=== PATIENT | female | born 1955 | race Caucasian/White ===

== ENCOUNTER 2018-07-28 12:39 | Observation (INO) | payer MEDICARE, OTHER, SELFPAY ==
[2018-07-28] VITALS (10 sets, daily range): BP systolic 133–166; BP diastolic 67–86; PULSE 46–63; RESP 14–18; TEMP 36.1–36.9; O2SAT 94–99; BMI 30.4; BMI 30.5
--- NOTE | 2018-07-28 13:15 | EKG12_ITS ---
Test Reason : PALPITATIONS Blood Pressure : / mmHG Vent. Rate : 053 BPM Atrial Rate : 053 BPM P-R Int : 112 ms QRS Dur : 086 ms QT Int : 484 ms P-R-T Axes : 000 001 -08 degrees QTc Int : 454 ms Sinus bradycardia vs ectopic atrial bradycardia Nonspecific ST abnormality Abnormal ECG Confirmed by FAITH MENDOZA, NORMA ([id number]), sound editor VENUS BRUMFIELD ([id number]) on 07/31/2018 9:04:58 AM Referred By: Adolfo Solitario Confirmed By:NORMA CUEVAS MD
--- NOTE | 2018-07-28 13:15 | ED.VIS.GEN ---
History of Present Illness Chief Complaint: Syncope Detail of Chief Complaint: near-syncope Informant: Patient, Significant Other Onset: Yesterday Context: Sudden Onset - w/ heavy exertion yest, at rest today while sitting in [employer] Timing: Intermittent, Lasts - 20-30 min Quality: lightheaded, near-syncopal Current Severity: - - gone Maximum Severity: Severe Worsened by: exertion yest Relieved by: rest yest Associated Symptoms: sob. nausea. all sx gone right now. Narrative: Patient is never had symptoms like this before. She takes HCTZ for blood pressure but no AV blocking medications. No history of heart problems. Had a normal stress test around 2 years ago. States she donated blood about a week ago and they told her to drink plenty of fluids which she has been doing. No new medications. She denies having any chest, back, jaw/neck/arm discomfort at all with any of this. Her nausea is associated with feeling lightheaded and like she is going to pass out, but it resolves when the other symptoms resolved. She feels short of breath and feels like her heart is pounding or beating hard, but not necessarily irregularly and has had no racing. - Past Medical History (1) Hypertension Status: Chronic Past Medical History - Allergies and Home Meds Allergies/Adverse Reactions: Allergies No Known Allergies Allergy (Verified 07/28/18 13:40) Primary Care Physician: NOT,DEFINED [NON-STAFF] - Lives: Spouse/ Significant Other Smoking Status: Former smoker Drugs: None Review of Systems General: Reports: Malaise. Denies: Chills, Fever, Sweats Eyes: Denies: Visual changes - bilaterally, Diplopia ENT: Denies: Rhinorrhea, Sore throat Cardiovascular: Denies: Chest pain, Palpitations Respiratory: Reports: Dyspnea. Denies: Cough, Dyspnea on exertion Gastrointestinal: Reports: Nausea. Denies: Abdominal pain, Vomiting, Diarrhea, Melena, Hematochezia Genitourinary: Denies: Dysuria, Hematuria, Frequency Musculoskeletal: Denies: Back pain, Swelling, Extremity Pain Skin: Denies: Rash, Wounds Neurological: Denies: Headache, Weakness, Numbness Physical Exam Vital Signs/Narrative: Vital Signs Temp Pulse Resp BP Pulse Ox 07/28/18 12:39 97 F L 50 L 16 166/82 H 99 Inital Vital Signs reviewed: Yes General: Well nourished, Well developed, No Acute Distress Head: Normocephalic, Atraumatic Eyes: Perrl, EOMI ENT: Moist mucous membranes, No rhinorrhea Neck: Supple, Nontender, No lymphadenopathy, No JVD Cardiovascular: Regular rate, Regular rhythm, No murmurs, Normal S1, Normal S2, Bradycardia Respiratory: No distress, CTA bilaterally, Chest nontender Abdomen: Soft, Nontender, Nondistended, Normal bowel sounds Back: Nontender, Normal Inspection Extremities: Nontender, No edema. Negative for: Calf Tenderness Skin: Normal color, No rash, No Trauma Neurological: Alert, Oriented x3, Cranial nerves II-XII grossly intact, Normal Strength, Normal Sensation Psychological: Normal affect, Normal Mood Diagnostic/Tx/Re-eval Impressions Chest X-Ray 07/28/18 13:20 IMPRESSION: Nonacute portable x-ray examination of the chest. Electronically Signed: Boni Trejo MD at 13:30 EDT , Service support , 07/28/18 13:20 Chest 1 View (Portable) [RAD] Stat Laboratory Results 07/28/18 07/28/18 07/28/18 13:30 13:30 13:30 WBC 5.4 RBC 3.82 L Hgb 11.5 L Hct 33.4 L MCV 87.4 MCH 30.1 MCHC 34.4 RDW 13.0 RDW Differential 39.4 Plt Count 187 MPV 10.5 Immature Gran % (Auto) 0.200 Neut % (Auto) 67.5 Lymph % (Auto) 25.4 [place] % (Auto) 5.3 Eos % (Auto) 0.9 Baso % (Auto) 0.7 Absolute Neuts (auto) 3.7 Absolute Lymphs (auto) 1.38 Total Counted Not Reportable Sodium 142 Potassium 3.2 L Chloride 107 Carbon Dioxide 24.0 Anion Gap 11 BUN 12 Creatinine 0.96 Estim Creat Clear Calc 48.33 Est GFR (MDRD) Af Amer 75 Est GFR (MDRD) Non-Af 62 BUN/Creatinine Ratio 12.5 Glucose 98 Calcium 9.5 Troponin I < 0.015 B-Natriuretic Peptide 71.5 - Rhythm Strip Rhythm Strip: Sinus Rhythm Rate: 50 Ectopy: None - EKG Initial EKG Interpretation: Sinus Rhythm, No Acute Injury Pattern, - - Short [place] interval. Normal axis. Several possible U waves but inconsistent. Otherwise unremarkable EKG. Prior: No Prior - Medical Decision Making Labs show mild hypokalemia but no other abnormalities and her troponin is negative. She had no other symptom medic events while in the emergency department on the monitor. She is borderline bradycardic, my concern is that she had symptom medic bradycardia, she has no AV luan blockers that we could hold and she does not have a electrical tests supervisor that would make it easy for her to follow-up soon after the weekend. I discussed options with her and she prefers to stay in the hospital, she will be in observation but I think that is reasonable. Discussed with hospitalist. ED Disposition - Plan for ED Patient: Disposition: Acute Care Hospital [facility] Diagnosis: Near syncope Referrals: NOT,DEFINED [NON-STAFF] -
--- NOTE | 2018-07-28 13:19 | ED.DCSUM_ITS ---
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 nausea. all sx gone right now. Narrative: Patient is never had symptoms like this before. She takes HCTZ for blood pressure but no AV blocking medications. No history of heart problems. Had a normal stress test around 2 years ago. States she donated blood about a week ago and they told her to drink plenty of fluids which she has been doing. No new medications. She denies having any chest, back, jaw/neck/arm discomfort at all with any of this. Her nausea is associated with feeling lightheaded and like she is going to pass out, but it resolves when the other symptoms resolved. She feels short of breath and feels like her heart is pounding or beating hard, but not necessarily irregularly and has had no racing. - Past Medical History (1) Hypertension Status: Chronic Past Medical History - Allergies and Home Meds Allergies/Adverse Reactions: Allergies No Known Allergies Allergy (Verified 07/28/18 13:40) Primary Care Physician: NOT,DEFINED [NON-STAFF] - Lives: Spouse/ Significant Other Smoking Status: Former smoker Drugs: None Review of Systems General: Reports: Malaise. Denies: Chills, Fever, Sweats Eyes: Denies: Visual changes - bilaterally, Diplopia ENT: Denies: Rhinorrhea, Sore throat Cardiovascular: Denies: Chest pain, Palpitations Respiratory: Reports: Dyspnea. Denies: Cough, Dyspnea on exertion Gastrointestinal: Reports: Nausea. Denies: Abdominal pain, Vomiting, Diarrhea, Melena, Hematochezia Genitourinary: Denies: Dysuria, Hematuria, Frequency Musculoskeletal: Denies: Back pain, Swelling, Extremity Pain Skin: Denies: Rash, Wounds Neurological: Denies: Headache, Weakness, Numbness Physical Exam Vital Signs/Narrative: Vital Signs Temp Pulse Resp BP Pulse Ox 07/28/18 12:39 97 F L 50 L 16 166/82 H 99 Inital Vital Signs reviewed: Yes General: Well nourished, Well developed, No Acute Distress Head: Normocephalic, Atraumatic Eyes: Perrl, EOMI ENT: Moist mucous membranes, No rhinorrhea Neck: Supple, Nontender, No lymphadenopathy, No JVD Cardiovascular: Regular rate, Regular rhythm, No murmurs, Normal S1, Normal S2, Bradycardia Respiratory: No distress, CTA bilaterally, Chest nontender Abdomen: Soft, Nontender, Nondistended, Normal bowel sounds Back: Nontender, Normal Inspection Extremities: Nontender, No edema. Negative for: Calf Tenderness Skin: Normal color, No rash, No Trauma Neurological: Alert, Oriented x3, Cranial nerves II-XII grossly intact, Normal Strength, Normal Sensation Psychological: Normal affect, Normal Mood Diagnostic/Tx/Re-eval Impressions Chest X-Ray 07/28/18 13:20 IMPRESSION: Nonacute portable x-ray examination of the chest. Electronically Signed: Boni Trejo MD at 13:30 EDT , Service support , 07/28/18 13:20 Chest 1 View (Portable) [RAD] Stat Laboratory Results 07/28/18 07/28/18 07/28/18 13:30 13:30 13:30 WBC 5.4 RBC 3.82 L Hgb 11.5 L Hct 33.4 L MCV 87.4 MCH 30.1 MCHC 34.4 RDW 13.0 RDW Differential 39.4 Plt Count 187 MPV 10.5 Immature Gran % (Auto) 0.200 Neut % (Auto) 67.5 Lymph % (Auto) 25.4 [place] % (Auto) 5.3 Eos % (Auto) 0.9 Baso % (Auto) 0.7 Absolute Neuts (auto) 3.7 Absolute Lymphs (auto) 1.38 Total Counted Not Reportable Sodium 142 Potassium 3.2 L Chloride 107 Carbon Dioxide 24.0 Anion Gap 11 BUN 12 Creatinine 0.96 Estim Creat Clear Calc 48.33 Est GFR (MDRD) Af Amer 75 Est GFR (MDRD) Non-Af 62 BUN/Creatinine Ratio 12.5 Glucose 98 Calcium 9.5 Troponin I < 0.015 B-Natriuretic Peptide 71.5 - Rhythm Strip Rhythm Strip: Sinus Rhythm Rate: 50 Ectopy: None - EKG Initial EKG Interpretation: Sinus Rhythm, No Acute Injury Pattern, - - Short [place] interval. Normal axis. Several possible U waves but inconsistent. Otherwise unremarkable EKG. Prior: No Prior - Medical Decision Making Labs show mild hypokalemia but no other abnormalities and her troponin is negative. She had no other symptom medic events while in the emergency department on the monitor. 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 I discussed options with her and she prefers to stay in the hospital, she will be in observation but I think that is reasonable. Discussed with hospitalist. ED Disposition - Plan for ED Patient: Disposition: Acute Care Hospital [facility] Diagnosis: Near syncope Referrals: NOT,DEFINED [NON-STAFF] -
--- NOTE | 2018-07-28 13:20 | RAD_ITS ---
STUDY: X-RAY CHEST REASON FOR EXAM: Female, 63 years old. Shortness of breath since yesterday, palpitations TECHNIQUE: AP COMPARISON: None. FINDINGS: The lungs are clear and expanded. There is no demonstrated pleural abnormality. Normal size heart. Normal mediastinum and ching. Normal visualized pulmonary arteries. There is atherosclerotic tortuosity of the aortic arch and descending thoracic aorta. No acute bony process. There is no demonstrated abnormality of the visualized soft tissue structures of the upper abdomen. RAD/Chest 1 View (Portable) IMPRESSION: Nonacute portable x-ray examination of the chest. Electronically Signed: Boni Trejo MD at 13:30 EDT , Service support ,
[2018-07-28 13:48] LABS: Absolute Lymphocyte Count 1.38 X10^3/ul (0.83-4.51); Absolute Neutrophil Count 3.7 X10^3/uL (2.0-7.7); Basophil# 0.04 X10^3/uL; Basophil% 0.7 % (0-1); Eosinophil# 0.05 X10^3/uL; Eosinophils% 0.9 % (0-5); Hematocrit 33.4 % (37-47); Hemoglobin 11.5 g/dl (12.0-15.0); Lymphocyte # 1.38 X10^3/ul (4.0); Lymphocyte % 25.4 % (19-41); Mean Corp Hgb Conc 34.4 g/gl (32-36); Mean Corpuscular Hgb 30.1 pg (27.0-32.0); Mean Corpuscular Volume 87.4 fL (81-99); Mean Platelet Vol. 10.5 fl (6.2-12.0); Monocyte# 0.29 X10^3/uL; Monocyte% 5.3 % (0-10); Neutrophil # 3.67 X10^3/uL (2.7-7.7); Neutrophil % 67.5 % (47-70); Platelet Count 187 K/mm3 (150-450); RBC Distribution Width SD 39.4 fl (35.1-43.9); Red Blood Count 3.82 M/mm3 (4.2-5.4); White Blood Count 5.4 K/mm3 (4.4-11.0)
[2018-07-28 13:49] LABS: POSITIVE COUNT NO; POSITIVE DIFFERENTIAL NO; POSITIVE MORPHOLOGY NO
[2018-07-28 14:03] LABS: Anion Gap 11 (5-15); BUN 12 mg/dL (7-18); BUN/Creat Ratio 12.5 RATIO (10-20); Calcium,Total 9.5 mg/dL (8.5-10.1); Chloride 107 mmol/L (98-107); Creatinine, Serum 0.96 mg/dL (0.55-1.02); EST Glomerular Filtration Rate 62 mL/min (>60); Est Glom Filt Rate - Afr Amer 75 mL/min (>60); Estimated Creatinine Clearance 48.33 ml/min; Glucose 98 mg/dL (74-106); Potassium 3.2 mmol/L (3.5-5.1); Sodium Level 142 mmol/L (136-145)
[2018-07-28 14:14] LABS: BNP,B-Type NATRIURETIC PEPTIDE 71.5 pg/mL (0-100)
--- NOTE | 2018-07-28 15:56 | PCM.HP.STD ---
Problem List (1) Hypertension Status: Chronic (2) Near syncope Status: Acute History of Present Illness Date of Admission: 07/28/18 Chief Complaint: Near syncope The patient is a 63 year old F with PMH as below who presents with 2 episodes of near syncope. 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 She says she felt like she had to stop every 30 minutes to catch her breath and then when she was walking back up to the house once the work was finished she felt lightheaded and had to sit down. It did go away with rest at that time it did not last very long. However today she went to judaism and while she was just sitting in judaism she got lightheaded and dizzy and she said that it lasted for about 20 to 30 minutes. She had some shortness of breath again today but no chest pain. She denies having any chest pain with either episode and has never had chest pain prior. She states that she is very active at home on the farm as well as with walking her dog and she is never been lightheaded, shortness of breath, or chest pain prior to yesterday. In the ER she was found to be slightly bradycardic down into the mid to low 50s, she states that she sits around 60. Also her blood pressure was slightly elevated which she takes HCTZ for at home, but her baseline is normally around the 110's to 120s. Her lab work was unremarkable and her EKG was sinus bradycardia. Past Medical History Past Medical History (Chronic Problems): Chronic Problems Hypertension (Chronic) Allergies No Known Allergies Allergy (Verified 07/28/18 13:40) Surgical History: cholecystectomy, - - Tubal ligation Lives: Spouse/ Significant Other Smoking Status: Former smoker Tobacco Use: Cigarettes Alcohol: None Drugs: None - *Family History Maternal History Items: Cancer, Heart Disease Paternal History Items: Cancer Review of Systems Constitutional: Denies: Chills, Fever, Weight Change HEENT: Denies: Head Aches, Sinus Congestion, Sinus Drainage Cardiovascular: Reports: Light Headedness. Denies: Chest Pain, Palpitations Respiratory: Reports: Shortness of Breath. Denies: Cough, Shortness of breath at rest, Sputum production Gastrointestinal: Denies: Abdominal Pain, Nausea, Vomiting Genitourinary: Denies: Dysuria Musculoskeletal: Denies: Joint Pain, Joint Tenderness Skin: Denies: Rash, Wounds Neurological: Denies: Numbness, Tingling, Focal weakness Psychiatric: Denies: Anxiety, Depression Hematologic/ Lymphatic: Denies: Easy Bruising, Easy Bleeding VTE Information - Inpt Only VTE Present on Admission: No Patient Problems: Active and Suspected Problems Near syncope (Acute) - Physical Exam General: Alert, Oriented x3, Cooperative, No apparent distress HEENT: Atraumatic, PERRLA, EOMI, Normocephalic Oral: Moist Mucosa Neck: Supple, No JVD Lungs: Clear to auscultation, Normal air movement, No rhonchi, No wheeze, No rales Cardiovascular: Regular rate, Regular Rhythm, Normal S1, Normal S2, No murmurs Abdomen: Soft, Non Tender, Non-Distended, No Hepato-splenomegaly Extremities: No edema, Capillary Refill Less than 3 Seconds Skin: No rashes, No breakdown Neurological: Neuro grossly intact, Sensory exam intact to light touch and pain Psych/Mental Status: Normal Affect, Appropriate Vital Signs Temp Pulse Resp BP Pulse Ox 97 F L 51 L 18 134/82 H 98 07/28/18 12:39 07/28/18 15:44 07/28/18 15:44 07/28/18 15:44 07/28/18 15:44 Oxygen Delivery Method Room Air Weight: 172 lb Body Mass Index (BMI) 30.4 Laboratory Tests Past 24 Hrs 07/28/18 07/28/18 07/28/18 13:30 13:30 13:30 WBC 5.4 RBC 3.82 L Hgb 11.5 L Hct 33.4 L MCV 87.4 MCH 30.1 MCHC 34.4 RDW 13.0 RDW Differential 39.4 Plt Count 187 MPV 10.5 Immature Gran % (Auto) 0.200 Neut % (Auto) 67.5 Lymph % (Auto) 25.4 [place] % (Auto) 5.3 Eos % (Auto) 0.9 Baso % (Auto) 0.7 Absolute Neuts (auto) 3.7 Absolute Lymphs (auto) 1.38 Total Counted Not Reportable Sodium 142 Potassium 3.2 L Chloride 107 Carbon Dioxide 24.0 Anion Gap 11 BUN 12 Creatinine 0.96 Estim Creat Clear Calc 48.33 Est GFR (MDRD) Af Amer 75 Est GFR (MDRD) Non-Af 62 BUN/Creatinine Ratio 12.5 Glucose 98 Calcium 9.5 Troponin I < 0.015 B-Natriuretic Peptide 71.5 Assessment/Plan All Active Problems Near syncope (Acute) 1. Near-syncope/HTN -Blood pressure has been stable, can resume her hydrochlorothiazide -We will continue with monitoring her on telemetry in the PCU, for possible symptomatic bradycardia -Obtain serial cardiac enzymes to rule out an WI -EKG in the morning -She did give blood on the but she says that she has been keeping her hydration up will discontinue to monitor -Can order an echo if she would like to stay until Sunday otherwise can be obtained as an outpatient 2. Hypokalemia -3.2 on admission -40 mEq p.o., will recheck in the morning DVT: Lovenox Code Visit OBSV E&M: 12191 Initial observation care L2
--- NOTE | 2018-07-28 16:01 | HP.PCM_ITS ---
Problem List (1) Hypertension Status: Chronic (2) Near syncope Status: Acute History of Present Illness Date of Admission: 07/28/18 Chief Complaint: Near syncope The patient is a 63 year old F with PMH as below who presents with 2 episodes of near syncope. 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 She says she felt like she had to stop every 30 minutes to catch her breath and then when she was walking back up to the house once the work was finished she felt lightheaded and had to sit down. It did go away with rest at that time it did not last very long. However today she went to method[employer] and while she was just sitting in methodist she got lightheaded and dizzy and she said that it lasted for about 20 to 30 minutes. She had some shortness of breath again today but no chest pain. She denies having any chest pain with either episode and has never had chest pain prior. She states that she is very active at home on the farm as well as with walking her dog and she is never been lightheaded, shortness of breath, or chest pain prior to yesterday. In the ER she was found to be slightly bradycardic down into the mid to low 50s, she states that she sits around 60. Also her blood pressure was slightly elevated which she takes HCTZ for at home, but her baseline is normally around the 110's to 120s. Her lab work was unremarkable and her EKG was sinus bradycardia. Past Medical History Past Medical History (Chronic Problems): Chronic Problems Hypertension (Chronic) Allergies No Known Allergies Allergy (Verified 07/28/18 13:40) Surgical History: cholecystectomy, - - Tubal ligation Lives: Spouse/ Significant Other Smoking Status: Former smoker Tobacco Use: Cigarettes Alcohol: None Drugs: None - *Family History Maternal History Items: Cancer, Heart Disease Paternal History Items: Cancer Review of Systems Constitutional: Denies: Chills, Fever, Weight Change HEENT: Denies: Head Aches, Sinus Congestion, Sinus Drainage Cardiovascular: Reports: Light Headedness. Denies: Chest Pain, Palpitations Respiratory: Reports: Shortness of Breath. Denies: Cough, Shortness of breath at rest, Sputum production Gastrointestinal: Denies: Abdominal Pain, Nausea, Vomiting Genitourinary: Denies: Dysuria Musculoskeletal: Denies: Joint Pain, Joint Tenderness Skin: Denies: Rash, Wounds Neurological: Denies: Numbness, Tingling, Focal weakness Psychiatric: Denies: Anxiety, Depression Hematologic/ Lymphatic: Denies: Easy Bruising, Easy Bleeding VTE Information - Inpt Only VTE Present on Admission: No Patient Problems: Active and Suspected Problems Near syncope (Acute) - Physical Exam General: Alert, Oriented x3, Cooperative, No apparent distress HEENT: Atraumatic, PERRLA, EOMI, Normocephalic Oral: Moist Mucosa Neck: Supple, No JVD Lungs: Clear to auscultation, Normal air movement, No rhonchi, No wheeze, No rales Cardiovascular: Regular rate, Regular Rhythm, Normal S1, Normal S2, No murmurs Abdomen: Soft, Non Tender, Non-Distended, No Hepato-splenomegaly Extremities: No edema, Capillary Refill Less than 3 Seconds Skin: No rashes, No breakdown Neurological: Neuro grossly intact, Sensory exam intact to light touch and pain Psych/Mental Status: Normal Affect, Appropriate Vital Signs Temp Pulse Resp BP Pulse Ox 97 F L 51 L 18 134/82 H 98 07/28/18 12:39 07/28/18 15:44 07/28/18 15:44 07/28/18 15:44 07/28/18 15:44 Oxygen Delivery Method Room Air Weight: 172 lb Body Mass Index (BMI) 30.4 Laboratory Tests Past 24 Hrs 07/28/18 07/28/18 07/28/18 13:30 13:30 13:30 WBC 5.4 RBC 3.82 L Hgb 11.5 L Hct 33.4 L MCV 87.4 MCH 30.1 MCHC 34.4 RDW 13.0 RDW Differential 39.4 Plt Count 187 MPV 10.5 Immature Gran % (Auto) 0.200 Neut % (Auto) 67.5 Lymph % (Auto) 25.4 [place] % (Auto) 5.3 Eos % (Auto) 0.9 Baso % (Auto) 0.7 Absolute Neuts (auto) 3.7 Absolute Lymphs (auto) 1.38 Total Counted Not Reportable Sodium 142 Potassium 3.2 L Chloride 107 Carbon Dioxide 24.0 Anion Gap 11 BUN 12 Creatinine 0.96 Estim Creat Clear Calc 48.33 Est GFR (MDRD) Af Amer 75 Est GFR (MDRD) Non-Af 62 BUN/Creatinine Ratio 12.5 Glucose 98 Calcium 9.5 Troponin I < 0.015 B-Natriuretic Peptide 71.5 Assessment/Plan All Active Problems Near syncope (Acute) 1. Near-syncope/HTN -Blood pressure has been stable, can resume her hydrochlorothiazide -We will continue with monitoring her on telemetry in the PCU, for possible symptomatic bradycardia -Obtain serial cardiac enzymes to rule out an MD -EKG in the morning -She did give blood on the but she says that she has been keeping her hydration up will discontinue to monitor -Can order an echo if she would like to stay until Sunday otherwise can be obtained as an outpatient 2. Hypokalemia -3.2 on admission -40 mEq p.o., will recheck in the morning DVT: Lovenox Code Visit OBSV E&M: [id number] Initial observation care L2
[2018-07-29] VITALS (7 sets, daily range): BP systolic 104–125; BP diastolic 48–72; PULSE 47–60; RESP 12–18; TEMP 36.6–36.7; O2SAT 94–100
--- NOTE | 2018-07-29 05:55 | EKG12_ITS ---
Test Reason : AM EKG Blood Pressure : / mmHG Vent. Rate : 049 BPM Atrial Rate : 049 BPM P-R Int : 140 ms QRS Dur : 088 ms QT Int : 486 ms P-R-T Axes : 024 -08 018 degrees QTc Int : 439 ms Sinus bradycardia Otherwise normal ECG When compared with ECG of 28-JUL-2018 12:49, MANUAL COMPARISON REQUIRED, DATA IS UNCONFIRMED Confirmed by WILLIAM MENDOZA, JOCELIN ([id number]), script editor AJITH OLIVARES ([id number]) on 08/05/2018 2:41:09 PM Referred By: Adolfo Solitario Confirmed By:JOCELIN THOMAS MD
[2018-07-29 07:08] LABS: Anion Gap 7 (5-15); BUN 10 mg/dL (7-18); Calcium,Total 9.3 mg/dL (8.5-10.1); Chloride 106 mmol/L (98-107); Creatinine, Serum 0.91 mg/dL (0.55-1.02); EST Glomerular Filtration Rate 66 mL/min (>60); Est Glom Filt Rate - Afr Amer 80 mL/min (>60); Estimated Creatinine Clearance 50.98 ml/min; Glucose 91 mg/dL (74-106); Potassium 3.7 mmol/L (3.5-5.1); Sodium Level 138 mmol/L (136-145)
--- NOTE | 2018-07-29 07:50 | DCINST_ITS ---
- Discharge Diagnoses Current Active Problems: Current Active and Chronic Problems Near syncope (Acute) You will use the following diet at home:: Cardiac Your food should be the consistency of: Regular Your liquids should be the consistency of: Regular/Thin Discharge Activity: Return to Normal Activity, No Restrictions Call your doctor if you observe: Fever of 101 or Higher, Shortness of breath, Dizziness, Fainting spells, Swelling in the ankles, Chest pain, Increased palpitations (irregular heartbeat) Allergies/Adverse Reactions: Allergies No Known Allergies Allergy (Verified 07/28/18 13:40) Medications to take at Discharge hydroCHLOROthiazide [Hydrochlorothiazide] 12.5 mg PO DAILY 07/28/18 Primary Care Physician: NOT,DEFINED [NON-STAFF] - Please follow up with your Primary Care Physician in: 3-5 days Test Results: Test results from this visit will be discussed in further detail at your follow- up appointment, if applicable.
--- NOTE | 2018-07-29 07:50 | PCM.DC.SUM ---
Discharge Date and Diagnosis - Problem List Patient Problems: Active and Suspected Problems Near syncope (Acute) Date of Admission: 07/28/18 Date of Discharge: 07/29/18 - Primary Discharge Diagnosis Active and Suspected Problems Near syncope (Acute) - Secondary Discharge Diagnosis Chronic Problems Hypertension (Chronic) Hospital Course and Treatment Imaging Results: CXR: IMPRESSION: Nonacute portable x-ray examination of the chest. Consults: None Operations: None Procedures: None Summary of Care Provided: Per HPI: The patient is a 63 year old F with PMH as below who presents with 2 episodes of near syncope. 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 She says she felt like she had to stop every 30 minutes to catch her breath and then when she was walking back up to the house once the work was finished she felt lightheaded and had to sit down. It did go away with rest at that time it did not last very long. However today she went to quaker and while she was just sitting in quaker she got lightheaded and dizzy and she said that it lasted for about 20 to 30 minutes. She had some shortness of breath again today but no chest pain. She denies having any chest pain with either episode and has never had chest pain prior. She states that she is very active at home [place] the farm as well as with walking her dog and she is never been lightheaded, shortness of breath, or chest pain prior to yesterday. In the ER she was found to be slightly bradycardic down into the mid to low 50s, she states that she sits around 60. Also her blood pressure was slightly elevated which she takes HCTZ for at home, but her baseline is normally around the 110's to 120s. Her lab work was unremarkable and her EKG was sinus bradycardia. Hospital Course: 1. Near syncope/[id number]-old female who presented with 2 episodes of near syncope over the last 2 days. The last one occurred while sitting in quaker. She states that she has not been eating well but she is focused on her drinking since she gave blood about a week ago. Today she felt perfectly fine and has been asymptomatic. She had orthostatic vital signs obtained which were normal. I discussed with her that she could stay another day to have an echo done tomorrow since today is a holiday, however she would prefer to go home and follow-up with her primary care doctor and have an echo done as an outpatient. Why discussed with her that if this were to happen again to go to the closest ER for evaluation and work-up, however the only abnormality is that she was sinus bradycardia into the low 50s, and she states that she is normally around 60 anyways. And she is asymptomatic while she is bradycardic into the low 50s high 40s. 2. Her other medical diagnoses were evaluated in her home medications were continued where appropriate Patient Problems: Active and Suspected Problems Near syncope (Acute) Objective: General: Alert, Oriented x3, Cooperative, No apparent distress HEENT: Atraumatic, PERRLA, EOMI, Normocephalic Oral: Moist Mucosa Neck: Supple, No JVD Lungs: Clear to auscultation, Normal air movement, No rhonchi, No wheeze, No rales Cardiovascular: Regular rate, Regular Rhythm, Normal S1, Normal S2, No murmurs Abdomen: Soft, Non Tender, Non-Distended, No Hepato-splenomegaly Extremities: No edema, Capillary Refill Less than 3 Seconds Skin: No rashes, No breakdown Neurological: Neuro grossly intact, Sensory exam intact to light touch and pain Psych/Mental Status: Normal Affect, Appropriate - Physical Exam Vital Signs Temp Pulse Resp BP Pulse Ox 97.9 F 47 L 18 114/61 100 07/29/18 03:25 07/29/18 07:48 07/29/18 03:25 07/29/18 07:48 07/29/18 03:25 Oxygen Delivery Method Room Air Weight: 171 lb 8.314 oz Body Mass Index (BMI) 30.4 Orthostatic Vital Signs Start: 07/29/18 07:48 Freq: q24h Status: Active Protocol: Activity Type Activity Date Activity User E-Sign Co-Sign Detail Recorded Client Recorded Date Recorded By Document 07/29/18 07:48 LW [id number] 07/29/18 07:50 LW 07/29/18 07:48 Orthostatic Vitals Standing -Blood Pressure (90/60-120/80) 125/72 H -Extremity Use Left Arm -Pulse Rate (60-100) 56 L Sitting -Blood Pressure (90/60-120/80) 115/64 -Extremity Use Left Arm -Pulse Rate (60-100) 52 L Lying -Blood Pressure (90/60-120/80) 114/61 -Extremity Use Left Arm -Pulse Rate (60-100) 47 L Intake and Output for Last 24 Hours 07/27/18 07/28/18 07/29/18 23:59 23:59 23:59 Intake Total 720 / 720 120 / 120 Balance 720 / 720 120 / 120 Laboratory Tests Past 24 Hrs 07/28/18 07/28/18 07/28/18 13:30 13:30 13:30 WBC 5.4 RBC 3.82 L Hgb 11.5 L Hct 33.4 L MCV 87.4 MCH 30.1 MCHC 34.4 RDW 13.0 RDW Differential 39.4 Plt Count 187 MPV 10.5 Immature Gran % (Auto) 0.200 Neut % (Auto) 67.5 Lymph % (Auto) 25.4 [place] % (Auto) 5.3 Eos % (Auto) 0.9 Baso % (Auto) 0.7 Absolute Neuts (auto) 3.7 Absolute Lymphs (auto) 1.38 Total Counted Not Reportable Sodium 142 Potassium 3.2 L Chloride 107 Carbon Dioxide 24.0 Anion Gap 11 BUN 12 Creatinine 0.96 Estim Creat Clear Calc 48.33 Est GFR (MDRD) Af Amer 75 Est GFR (MDRD) Non-Af 62 BUN/Creatinine Ratio 12.5 Glucose 98 Calcium 9.5 Troponin I < 0.015 B-Natriuretic Peptide 71.5 07/28/18 07/28/18 07/29/18 17:18 19:50 06:30 WBC RBC Hgb Hct MCV MCH MCHC RDW RDW Differential Plt Count MPV Immature Gran % (Auto) Neut % (Auto) Lymph % (Auto) [place] % (Auto) Eos % (Auto) Baso % (Auto) Absolute Neuts (auto) Absolute Lymphs (auto) Total Counted Sodium 138 Potassium 3.7 Chloride 106 Carbon Dioxide 25.0 Anion Gap 7 BUN 10 Creatinine 0.91 Estim Creat Clear Calc 50.98 Est GFR (MDRD) Af Amer 80 Est GFR (MDRD) Non-Af 66 BUN/Creatinine Ratio 11.0 Glucose 91 Calcium 9.3 Troponin I < 0.015 < 0.015 B-Natriuretic Peptide Discharge Activity: Return to Normal Activity, No Restrictions Call your doctor if you observe: Fever of 101 or Higher, Shortness of breath, Dizziness, Fainting spells, Swelling in the ankles, Chest pain, Increased palpitations (irregular heartbeat) Home Medications: Medications to take at Discharge hydroCHLOROthiazide [Hydrochlorothiazide] 12.5 mg PO DAILY 07/28/18 Primary Care Physician: Migel Daniels MD [Primary Care Provider] - Please follow up with your Primary Care Physician in: 3-5 days Disposition: Home Minutes spent on discharge:: 35 Patient Condition:: Stable Medical Necessity - Tobacco Use Smoking Status: Former smoker Tobacco Use: Cigarettes Meaningful Use Info Meaningful Use Diagnoses (Choose all that apply): None applicable Code Visit OBSV E&M: 45205 Observation care discharge
--- NOTE | 2018-07-29 07:56 | DS.PCM_ITS ---
Discharge Date and Diagnosis - Problem List Patient Problems: Active and Suspected Problems Near syncope (Acute) Date of Admission: 07/28/18 Date of Discharge: 07/29/18 - Primary Discharge Diagnosis Active and Suspected Problems Near syncope (Acute) - Secondary Discharge Diagnosis Chronic Problems Hypertension (Chronic) Hospital Course and Treatment Imaging Results: CXR: IMPRESSION: Nonacute portable x-ray examination of the chest. Consults: None Operations: None Procedures: None Summary of Care Provided: Per HPI: The patient is a 63 year old F with PMH as below who presents with 2 episodes of near syncope. 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 She says she felt like she had to stop every 30 minutes to catch her breath and then when she was walking back up to the house once the work was finished she felt lightheaded and had to sit down. It did go away with rest at that time it did not last very long. However today she went to sikhism and while she was just sitting in sikhism she got lightheaded and dizzy and she said that it lasted for about 20 to 30 minutes. She had some shortness of breath again today but no chest pain. She denies having any chest pain with either episode and has never had chest pain prior. She states that she is very active at home on the farm as well as with walking her dog and she is never been lightheaded, shortness of breath, or chest pain prior to yesterday. In the ER she was found to be slightly bradycardic down into the mid to low 50s, she states that she sits around 60. Also her blood pressure was slightly elevated which she takes HCTZ for at home, but her baseline is normally around the 110's to 120s. Her lab work was unremarkable and her EKG was sinus bradycardia. Hospital Course: 1. Near syncope/[id number]-old female who presented with 2 episodes of near syncope over the last 2 days. The last one occurred while sitting in sikhism. She states that she has not been eating well but she is focused on her drinking since she gave blood about a week ago. Today she felt perfectly fine and has been asymptomatic. She had orthostatic vital signs obtained which were normal. I discussed with her that she could stay another day to have an echo done tomorrow since today is a holiday, however she would prefer to go home and follow-up with her primary care doctor and have an echo done as an outpatient. Why discussed with her that if this were to happen again to go to the closest ER for evaluation and work-up, however the only abnormality is that she was sinus bradycardia into the low 50s, and she states that she is normally around 60 anyways. And she is asymptomatic while she is bradycardic into the low 50s high 40s. 2. Her other medical diagnoses were evaluated in her home medications were continued where appropriate Patient Problems: Active and Suspected Problems Near syncope (Acute) Objective: General: Alert, Oriented x3, Cooperative, No apparent distress HEENT: Atraumatic, PERRLA, EOMI, Normocephalic Oral: Moist Mucosa Neck: Supple, No JVD Lungs: Clear to auscultation, Normal air movement, No rhonchi, No wheeze, No rales Cardiovascular: Regular rate, Regular Rhythm, Normal S1, Normal S2, No murmurs Abdomen: Soft, Non Tender, Non-Distended, No Hepato-splenomegaly Extremities: No edema, Capillary Refill Less than 3 Seconds Skin: No rashes, No breakdown Neurological: Neuro grossly intact, Sensory exam intact to light touch and pain Psych/Mental Status: Normal Affect, Appropriate - Physical Exam Vital Signs Temp Pulse Resp BP Pulse Ox 97.9 F 47 L 18 114/61 100 07/29/18 03:25 07/29/18 07:48 07/29/18 03:25 07/29/18 07:48 07/29/18 03:25 Oxygen Delivery Method Room Air Weight: 171 lb 8.314 oz Body Mass Index (BMI) 30.4 Orthostatic Vital Signs Start: 07/29/18 07:48 Freq: q24h Status: Active Protocol: Activity Type Activity Date Activity User E-Sign Co-Sign Detail Recorded Client Recorded Date Recorded By Document 07/29/18 07:48 LW [id number] 07/29/18 07:50 LW 07/29/18 07:48 Orthostatic Vitals Standing -Blood Pressure (90/60-120/80) 125/72 H -Extremity Use Left Arm -Pulse Rate (60-100) 56 L Sitting -Blood Pressure (90/60-120/80) 115/64 -Extremity Use Left Arm -Pulse Rate (60-100) 52 L Lying -Blood Pressure (90/60-120/80) 114/61 -Extremity Use Left Arm -Pulse Rate (60-100) 47 L Intake and Output for Last 24 Hours 07/27/18 07/28/18 07/29/18 23:59 23:59 23:59 Intake Total 720 / 720 120 / 120 Balance 720 / 720 120 / 120 Laboratory Tests Past 24 Hrs 07/28/18 07/28/18 07/28/18 13:30 13:30 13:30 WBC 5.4 RBC 3.82 L Hgb 11.5 L Hct 33.4 L MCV 87.4 MCH 30.1 MCHC 34.4 RDW 13.0 RDW Differential 39.4 Plt Count 187 MPV 10.5 Immature Gran % (Auto) 0.200 Neut % (Auto) 67.5 Lymph % (Auto) 25.4 [place] % (Auto) 5.3 Eos % (Auto) 0.9 Baso % (Auto) 0.7 Absolute Neuts (auto) 3.7 Absolute Lymphs (auto) 1.38 Total Counted Not Reportable Sodium 142 Potassium 3.2 L Chloride 107 Carbon Dioxide 24.0 Anion Gap 11 BUN 12 Creatinine 0.96 Estim Creat Clear Calc 48.33 Est GFR (MDRD) Af Amer 75 Est GFR (MDRD) Non-Af 62 BUN/Creatinine Ratio 12.5 Glucose 98 Calcium 9.5 Troponin I < 0.015 B-Natriuretic Peptide 71.5 07/28/18 07/28/18 07/29/18 17:18 19:50 06:30 WBC RBC Hgb Hct MCV MCH MCHC RDW RDW Differential Plt Count MPV Immature Gran % (Auto) Neut % (Auto) Lymph % (Auto) [place] % (Auto) Eos % (Auto) Baso % (Auto) Absolute Neuts (auto) Absolute Lymphs (auto) Total Counted Sodium 138 Potassium 3.7 Chloride 106 Carbon Dioxide 25.0 Anion Gap 7 BUN 10 Creatinine 0.91 Estim Creat Clear Calc 50.98 Est GFR (MDRD) Af Amer 80 Est GFR (MDRD) Non-Af 66 BUN/Creatinine Ratio 11.0 Glucose 91 Calcium 9.3 Troponin I < 0.015 < 0.015 B-Natriuretic Peptide Discharge Activity: Return to Normal Activity, No Restrictions Call your doctor if you observe: Fever of 101 or Higher, Shortness of breath, Dizziness, Fainting spells, Swelling in the ankles, Chest pain, Increased palpitations (irregular heartbeat) Home Medications: Medications to take at Discharge hydroCHLOROthiazide [Hydrochlorothiazide] 12.5 mg PO DAILY 07/28/18 Primary Care Physician: Migel Daniels MD [Primary Care Provider] - Please follow up with your Primary Care Physician in: 3-5 days Disposition: Home Minutes spent on discharge:: 35 Patient Condition:: Stable Medical Necessity - Tobacco Use Smoking Status: Former smoker Tobacco Use: Cigarettes Meaningful Use Info Meaningful Use Diagnoses (Choose all that apply): None applicable Code Visit OBSV E&M: 32078 Observation care discharge
[2018-07-29] MEDS: hydroCHLOROthiazide 12.5mg 12.5 MG PO (10:10)
== END 2018-07-29 07:49 | disposition home or self-care (01) ==
LOC: ED 15:43 → PCU 16:00
PROVIDERS: Admitting Provider Family Medicine; Emergency Provider Emergency Medicine; Family Provider Family Medicine; PCP Family Medicine; Referring Provider Family Medicine; Visit Provider Family Medicine
DX: R55 Syncope and collapse (principal); I10 Essential (primary) hypertension; Z79.899 Other long term (current) drug therapy; R06.02 Shortness of breath; R11.0 Nausea; Z87.891 Personal history of nicotine dependence; E87.6 Hypokalemia
CPT/HCPCS: 36415; 71045; 80048; 83880; 84484; 85025; 93005; 99218; 99285; A4216; G0378